=== PATIENT | female | born 1995 | race Caucasian/White ===

== ENCOUNTER 2016-09-19 23:03 | Emergency (ER) | payer SELFPAY ==
[~2016-09-19] VITALS: Ht 170.2 cm; Wt 81.1 kg
[2016-09-19] MEDS ORDERED: ATARAX,VISTARIL50 MG PO (23:34)
[2016-09-19 23:40] VITALS: BP 115/72
== END 2016-09-19 23:41 | disposition home or self-care (01) ==
LOC: EME 23:03
DX: F41.0 Panic disorder [episodic paroxysmal anxiety] (principal); R00.2 Palpitations; I45.10 Unspecified right bundle-branch block
CPT/HCPCS: 93005; 99281; 99283; Q0177